=== PATIENT | female | born 1960 | race Two or more races ===

== ENCOUNTER 2016-12-14 16:32 | Emergency (ER) | payer OTHER ==
[~2016-12-14] VITALS: Ht 162.6 cm; Wt 81.6 kg
--- NOTE | 2016-12-14 17:10 | Emergency Room Report ---
History of Present Illness General Chief Complaint: Lower Extremity Injury Source: Patient Present Illness HPI 56 YO Female presents to the ED c/o lateral left foot pain x 2 day, s/p twisting foot at work yesterday. 4/10 in severity, with exacerbation to 8/10 in severity with weight bearing and palpation. Pt denies previous injury to the affected extremity. pt. reports some swelling denies bruising. states pain is localized. denies erythema or increased temperature to palpation. pt. reports at home taking advil , icing, and elevating the foot with minimal relief. pt. states she did not fall to the ground, denies LOC. Denies numbness tingling or loss of sensation or gross motor movements of the extremities, incontinence of bowel or bladder. Denies CP , Palpitations, LOC, AMS, dizziness, Changes in Vision, Sensation, paresthesias , or a sudden severe headache. 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 Review of Systems All Other Systems: negative except mentioned in HPI Physical Exam Vital Signs Date Time Temp Pulse Resp B/P (MAP) Pulse Ox O2 Delivery O2 Flow Rate FiO2 12/14/16 16:35 97.5 61 18 118/79 98 Room Air Sp02 EP Interpretation: reviewed, normal General Appearance: no apparent distress, alert, GCS 15, non-toxic Head: normocephalic, atraumatic Eyes: bilateral eye normal inspection, bilateral eye PERRL ENT: hearing grossly normal, normal voice Neck: full range of motion, supple/symm/no masses Respiratory: lungs clear, normal breath sounds, speaking full sentences Cardiovascular #1: regular rate, rhythm, no edema Cardiovascular #2: 2+ dorsalis pedis (L) Musculoskeletal: back normal, gait/station normal, normal range of motion, no calf tenderness, tender - TTP to the lateral & dorsum of left foot, mild swelling noted, no bruising or obvious deformity Neurologic: alert, oriented x3, responsive, motor strength/tone normal, sensory intact, speech normal Psychiatric: judgement/insight normal, memory normal, mood/affect normal Skin: normal color, no rash, warm/dry, well hydrated Medical Decision Making PA Attestation Dr. Ma is my supervising Physician whom patient management has been discussed with. Diagnostic Impression: Primary Impression: Metatarsal bone fracture Qualified Codes: S92.315A - Nondisplaced fracture of first metatarsal bone, left foot, initial encounter for closed fracture ER Course Pt. presents to the ED c/o lateral left foot pain x 2 day, s/p twisting foot at work yesterday. 4/10 in severity, with exacerbation to 8/10 in severity with weight bearing and palpation. Ddx considered but are not limited to Fracture, dislocation, contusion, Sprain/ Strain/Spasm. Vital signs: are WNL, pt. is afebrile H&PE are most consistent with musculoskeletal injury will perform imaging to r/ o fractures/dislocations. ORDERS: - X-ray Left Foot 3 views - POSITIVE for 5th Distal metatarsal fx, Negative for Dislocation, or significant soft tissue injury, per preliminary read in ED by Dr. Ma - interpretation is scribed by PA. ED INTERVENTIONS: - Declines oral pain medication at this time. - Pt placed into walking boot by emanations analysis technician, pt. remains NVI - PT is provided with a pair of crutches. DISCHARGE: At this time pt. is stable for d/c to home. Will provide printed patient care instructions, and any necessary prescriptions. Care plan and follow up instructions have been discussed with the patient prior to discharge. Last Vital Signs Date Time Temp Pulse Resp B/P (MAP) Pulse Ox O2 Delivery O2 Flow Rate FiO2 12/14/16 16:35 97.5 61 18 118/79 98 Room Air Disposition: HOME, SELF-CARE Condition: Stable Scripts Hydrocodone Bit/Acetaminophen 5-325* (NORCO 5-325*) 1 Each Tablet 1 TAB ORAL Q6H Y for For Pain, #10 TAB 0 Refills Prov: Rachelle Quiroga P.A. 12/14/16 Ibuprofen* (MOTRIN*) 600 Mg Tablet 600 MG ORAL THREE TIMES A DAY, #30 TAB 0 Refills Prov: Rachelle Quiroga P.A. 12/14/16 Referrals: NON PHYSICIAN (PCP) Departure Forms: Return to Work Return to Work Date: Dec 18, 2016 Work Restrictions: No Heavy Lifting, No Prolonged Standing, Desk Work Only Other Restrictions: limited use of left foot, allow boot and crutch use. Return to Full Activity: Jan 01, 2017 Patient Instructions: Metatarsal Fracture Additional Instructions: Take medications as directed. Follow up with an COMMERCIAL ACCOUNT EXECUTIVE in 3-5 days, even if your symptoms have resolved. --Please review list of primary care clinics, if you do not already have a primary care provider Return sooner to ED if new symptoms occur, or current symptoms become worse. Do not drink alcohol, drive, or operate heavy machinery while taking [place] as this may cause drowsiness. - Please note that this Emergency Department Report was dictated using [employer] software, occasionally this can lead to erroneous entry secondary to interpretation by the dictation equipment. Rachelle Quiroga Dec 14, 2016 17:10
[2016-12-14] MEDS ORDERED: IBUPROFEN600 MG ORAL (17:46)
[2016-12-14] MEDS ORDERED: NORCO 5-325 TA1 EACH ORAL (17:46)
[2016-12-14 18:00] VITALS: BP 120/78
--- NOTE | 2016-12-15 13:13 | Diagnostic Imaging Report ---
Indication: Pain Comparison: None Findings: 3 views of the left foot were obtained. Acute fractures of the third fourth and fifth metatarsal heads noted. The bones are osteopenic. There is loss of the plantar arch. Degenerative osteophytes in the midfoot as well as within the toes noted in multiple locations. Impression: Acute fractures involving the distal aspects of the third fourth and fifth metatarsals.
== END 2016-12-14 18:13 | disposition home or self-care (01) ==
LOC: EMR 16:58
DX: S92.352A Displaced fracture of fifth metatarsal bone, left foot, initial encounter for closed fracture (principal); X50.1XXA Overexertion from prolonged static or awkward postures, initial encounter; Y93.9 Activity, unspecified; Y99.9 Unspecified external cause status
CPT/HCPCS: 99284